=== PATIENT | female | born 1960 | race Caucasian/White ===

== ENCOUNTER 2019-07-18 17:00 | Outpatient (RCR) | payer BC, SELFPAY | END 2019-08-02 12:30 | disposition home or self-care (01) | LOC: PT.CARL 17:00 | PROVIDERS: Visit Provider Orthopaedic Surgery | DX: M76.61 Achilles tendinitis, right leg (principal) | CPT/HCPCS: 97010; 97014; 97033; 97035; 97110; 97112; 97140; 97163; G0283 ==